=== PATIENT | female | born 2000 | race Caucasian/White ===

== ENCOUNTER 2023-09-23 08:35 | Outpatient (AMB) | payer OTHER, SELFPAY ==
--- NOTE | 2023-09-23 08:33 | MHC.OFFWIV ---
Intake Vital Signs 09/23/23 08:37 Height 5 ft 3 in Weight 127 lb 4 oz BMI 22.5 BP 104/62 Blood Pressure Location Lt brachial Position Sitting Pulse 80 Pulse Source Pulse Oximeter Temp 98.0 F Temp Source Oral Pulse Oximetry (%) 98 Oxygen Delivery Method Room Air Intake Visit Reasons: [employer] LT red eye/Headaches Intake Note: pt is here for left red eye with headaches Patient Tobacco Use Status: Never used Tobacco Allergies BEE STINGS Allergy (Severe, Uncoded 09/23/23 08:34) DIFFICULTY BREATHING Do you need a note to return to daycare/school/sports/work: Yes HPI HPI Comments History of Present Illness Details 23 y/o female patient who presents to walk in clinic with c/o headaches and left eye redness, dry and itching. Recent COVID infection x 1 month ago. Denies fevers, chills, nausea or vomiting. Denies vision changes. PFSH Social History Patient Tobacco Use Status: Never used Tobacco Review of Systems Const All systems reviewed & are unremarkable except as noted in HPI and below Physical Exam Vital Signs: Last Vital Signs Temp 98.0 F 09/23/23 08:37 Pulse 80 09/23/23 08:37 BP 104/62 09/23/23 08:37 Pulse Ox 98 09/23/23 08:37 Oxygen Delivery Method Room Air 09/23/23 08:37 BMI result Body Mass Index 22.5 Const General: no acute distress HEENT Head: Yes normocephalic Ears: external ears normal and TM's normal bilaterally General nose exam: Normal external nose present Face and sinus: Yes sinuses nontender Mouth: moist mucous membranes Throat: Yes posterior oropharynx normal Eyes Conjunctivae: conjunctivae normal Sclerae: sclerae normal Pupils: Equal, round and reactive pupils present EOM: EOMs intact bilaterally Direct Ophthalmoscopy: normal light reflex Resp Effort & Inspection: normal respiratory effort and able to speak in complete sentences Auscultation: clear to auscultation bilaterally Cardio Rate: regular rate Rhythm: regular rhythm Neuro Cranial nerves: Yes Equal, round and reactive pupils present Assessment & Plan Assessment & Plan (1) Viral conjunctivitis of left eye: Code(s): B30.9 - Viral conjunctivitis, unspecified Plan: - Keep eye clean, use warm water - Stop rubbing and touching eyes - Use Eye drops as directed - Acetaminophen for pain relief. Medications: New ketotifen fumarate 0.025%(0.035%) (Allergy Eye (ketotifen)) administer at least 8 hours apart 1 drp ophthalmic (eye) BID PRN 5 mL 0RF allergy symptoms B30.9 - Viral conjunctivitis, unspecified Coding Level of Care Code Est Pt Level 3 (80993) Diagnoses Viral conjunctivitis of left eye B30.9 Time Spent (min) 15
[2023-09-23 08:37] VITALS: BP 104/62; PULSE 80; TEMP 36.7; O2SAT 98; BMI 22.5
== END 2023-09-23 09:22 | disposition home or self-care (01) ==
PROVIDERS: PCP Nurse Practitioner Family; Visit Provider Nurse Practitioner Family
DX: B30.9 Viral conjunctivitis, unspecified (principal)
CPT/HCPCS: 99213